=== PATIENT | male | born 1950 | race Caucasian/White ===

== ENCOUNTER 2023-11-12 01:42 | Inpatient (IN) | payer MEDICARE ==
[~2023-11-12] VITALS: Ht 177.8 cm; Wt 100.2 kg
[2023-11-12] VITALS (8 sets, daily range): BP systolic 120–167; BP diastolic 65–143
[2023-11-12 02:05] LABS: BASO # 0.1 10*3/uL (0.0-0.1); BASO % 0.6 % (0.0-1.0); EOS # 0.1 10*3/uL (0.0-0.4); EOS % 0.9 % (1.0-4.0); HEMATOCRIT 50.5 % (42.0-52.0); LYMPH # 2.1 10*3/uL (1.3-4.4); LYMPH % 25.8 % (27.0-41.0); MEAN CELL VOLUME 105.6 fl (80.0-94.0); MEAN CORPUSCULAR HGB 33.5 pg (27.0-31.0); MEAN CORPUSCULAR HGB CONC 31.7 g/dl (33.0-37.0); MEAN PLATELET VOLUME 10.9 fl (9.6-12.3); MONO # 0.8 10*3/uL (0.1-1.0); MONO % 9.7 % (3.0-9.0); NEUT # 5.1 10*3/uL (2.3-7.9); NEUT % 62.8 % (47.0-73.0); PLATELET COUNT AUTOMATED 160 10*3/uL (130-400); RED BLOOD COUNT 4.78 10*6/uL (4.50-5.90); RED CELL DISTRI WIDTH 16.4 % (0-14.5); WHITE BLOOD COUNT 8.2 10*3/uL (4.8-10.8)
[2023-11-12 02:28] LABS: ALKALINE PHOSPHATASE 137 U/L (46-116); BUN 19 mg/dl (9-23); CHLORIDE 111 mmol/L (98-107); POTASSIUM 4.3 mmol/L (3.4-5.1); SGPT/ALT 53 U/L (5-49); TOTAL PROTEIN 7.2 gm/dL (6.0-8.0)
[2023-11-12] MEDS ORDERED: BUMETANIDE 1 MG/4 ML VIAL IV ONE (02:40)
[2023-11-12] MEDS ORDERED: Diltiazem Hydrochloride 25 MG/5 ML VIAL IV ONE ×3 (02:40→10:25)
[2023-11-12] MEDS ORDERED: Magnesium Hydroxide 30 ML UDC PO PRN (05:30)
[2023-11-12] MEDS ORDERED: BISACODYL 10 MG SUPP R PRN (05:30)
[2023-11-12] MEDS ORDERED: ACETAMINOPHEN 325 MG TAB PO PRN (05:30)
[2023-11-12] MEDS ORDERED: BISACODYL 5 MG TAB PO PRN (05:30)
[2023-11-12] MEDS ORDERED: Ondansetron Hydrochloride 4 MG/2 ML VIAL IV PRN (05:30)
[2023-11-12] MEDS ORDERED: ACETAMINOPHEN 650 MG SUPP R PRN (05:30)
[2023-11-12] MEDS ORDERED: FUROSEMIDE 40 MG/4 ML VIAL IV SCH (06:00)
[2023-11-12] MEDS ORDERED: METOPROLOL SUCCINATE XR 50 MG TAB PO SCH (10:00)
[2023-11-12] MEDS ORDERED: Enoxaparin Sodium 100 MG/ML SYR SC SCH (10:00)
[2023-11-12] MEDS ORDERED: LISINOPRIL 5 MG TAB PO SCH (10:00)
[2023-11-12] MEDS ORDERED: DIGOXIN 500 MCG/2 ML AMP IV ONE (10:25)
[2023-11-12] MEDS ORDERED: Technetium Tc 99M Tetrofosmi 0.23 MG KIT IJ SCH (11:45)
[2023-11-12] MEDS ORDERED: PERFLUTREN PROTEIN-A MICROSPHR 3 ML VIAL IV ONE (11:57)
[2023-11-13] VITALS: BP 145/59
[2023-11-13 06:19] LABS: BASO # 0.1 10*3/uL (0.0-0.1); BASO % 0.6 % (0.0-1.0); EOS # 0.1 10*3/uL (0.0-0.4); EOS % 1.2 % (1.0-4.0); HEMATOCRIT 47.3 % (42.0-52.0); LYMPH # 2.3 10*3/uL (1.3-4.4); LYMPH % 28.6 % (27.0-41.0); MEAN CELL VOLUME 103.5 fl (80.0-94.0); MEAN CORPUSCULAR HGB 33.5 pg (27.0-31.0); MEAN CORPUSCULAR HGB CONC 32.3 g/dl (33.0-37.0); MEAN PLATELET VOLUME 11.5 fl (9.6-12.3); MONO # 0.8 10*3/uL (0.1-1.0); MONO % 9.5 % (3.0-9.0); NEUT # 4.8 10*3/uL (2.3-7.9); NEUT % 59.9 % (47.0-73.0); PLATELET COUNT AUTOMATED 147 10*3/uL (130-400); RED BLOOD COUNT 4.57 10*6/uL (4.50-5.90); RED CELL DISTRI WIDTH 16.3 % (0-14.5)
[2023-11-13 06:49] LABS: ALKALINE PHOSPHATASE 123 U/L (46-116); BUN 25 mg/dl (9-23); CHLORIDE 104 mmol/L (98-107); FREE T4 1.05 ng/dl (0.89-1.76); SGPT/ALT 45 U/L (5-49); TOTAL PROTEIN 6.8 gm/dL (6.0-8.0)
[2023-11-13 07:48] LABS: VITAMIN D, 25-HYDROXY 23.4 ng/mL (30-100)
[2023-11-13 08:00] VITALS: BP 129/65
[2023-11-13] MEDS ORDERED: Regadenoson 0.4 MG/5 ML SYR IV ONE (08:42)
[2023-11-13 12:00] VITALS: BP 131/75
[2023-11-13] MEDS ORDERED: XARE20MG PO (16:17)
[2023-11-13] MEDS ORDERED: METOPROLOL SUCC50 M1 PO (16:17)
[2023-11-13] MEDS ORDERED: LISINOPRIL5 MG PO (16:17)
[2023-11-13] MEDS ORDERED: RIVAROXABAN 20 MG TAB PO SCH (18:00)
== END 2023-11-13 16:57 | disposition home or self-care (01) | DRG 291 ==
LOC: ED 01:42 → EDHOLD 05:17 → 4E 05:17
PROVIDERS: Internal Medicine; Student in an Organized Health Care Education/Training Program; ADMIT Internal Medicine; ATTEND Internal Medicine
PROC: 4A02XM4 Measurement of Cardiac Total Activity, External Approach (ICD-10-PCS; principal; 2023-11-13)
PROC: 3E073KZ Introduction of Other Diagnostic Substance into Coronary Artery, Percutaneous Approach (ICD-10-PCS; 2023-11-13)
DX: I11.0 Hypertensive heart disease with heart failure (principal); G93.41 Metabolic encephalopathy; I50.23 Acute on chronic systolic (congestive) heart failure; J96.01 Acute respiratory failure with hypoxia; R65.10 Systemic inflammatory response syndrome (SIRS) of non-infectious origin without acute organ dysfunction; I48.20 Chronic atrial fibrillation, unspecified; I24.89 Other forms of acute ischemic heart disease; R18.8 Other ascites; I43 Cardiomyopathy in diseases classified elsewhere; I48.91 Unspecified atrial fibrillation; E80.6 Other disorders of bilirubin metabolism; R74.01 Elevation of levels of liver transaminase levels; I73.9 Peripheral vascular disease, unspecified; I08.1 Rheumatic disorders of both mitral and tricuspid valves; I27.20 Pulmonary hypertension, unspecified; D75.89 Other specified diseases of blood and blood-forming organs; I25.118 Atherosclerotic heart disease of native coronary artery with other forms of angina pectoris; K74.60 Unspecified cirrhosis of liver; Z91.148 Patient's other noncompliance with medication regimen for other reason; Z95.5 Presence of coronary angioplasty implant and graft; Z82.49 Family history of ischemic heart disease and other diseases of the circulatory system

== ENCOUNTER 2023-12-19 16:56 | Inpatient (IN) | payer MEDICARE ==
[~2023-12-19] VITALS: Ht 177.8 cm; Wt 96.2 kg
[~2023-12-19 16:56] MED LIST: LISINOPRIL5 MG PO; METOPROLOL SUCC50 M1 PO; XARE20MG PO
[2023-12-19] MEDS ORDERED: FUROSEMIDE 40 MG/4 ML VIAL IV ONE (17:05)
[2023-12-19 17:18] LABS: HEMATOCRIT 45.6 % (42.0-52.0); MEAN CORPUSCULAR HGB 33.1 pg (27.0-31.0); MEAN CORPUSCULAR HGB CONC 33.1 g/dl (33.0-37.0); MEAN PLATELET VOLUME 11.7 fl (9.6-12.3); PLATELET COUNT AUTOMATED 122 10*3/uL (130-400); RED BLOOD COUNT 4.56 10*6/uL (4.50-5.90); RED CELL DISTRI WIDTH 16.9 % (0-14.5); WHITE BLOOD COUNT 6.4 10*3/uL (4.8-10.8)
[2023-12-19 17:23] VITALS: BP 153/66
[2023-12-19 17:36] LABS: BUN 16 mg/dl (9-23); CHLORIDE 108 mmol/L (98-107); MANUAL DIFF REFLEX YES; POTASSIUM 3.5 mmol/L (3.4-5.1)
[2023-12-19 17:41] LABS: PLATELET SUFFICIENCY LOW (NORMAL); TOTAL CELLS COUNTED 100 #CELLS
[2023-12-19 19:17] VITALS: BP 140/82
[2023-12-19] MEDS ORDERED: BISACODYL 10 MG SUPP R PRN (20:20)
[2023-12-19] MEDS ORDERED: ACETAMINOPHEN 650 MG SUPP R PRN (20:20)
[2023-12-19] MEDS ORDERED: BISACODYL 5 MG TAB PO PRN (20:20)
[2023-12-19] MEDS ORDERED: Acetaminophen/Hydrocodone 5 MG/325 MG TABLET PO PRN (20:20)
[2023-12-19] MEDS ORDERED: Ondansetron Hydrochloride 4 MG/2 ML VIAL IV PRN (20:20)
[2023-12-19] MEDS ORDERED: MORPHINE Sulfate 2 MG/ML SYR IV PRN (20:20)
[2023-12-19] MEDS ORDERED: Magnesium Hydroxide 30 ML UDC PO PRN (20:20)
[2023-12-19] MEDS ORDERED: TEMAZEPAM 15 MG CAP PO PRN (20:20)
[2023-12-19] MEDS ORDERED: ACETAMINOPHEN 325 MG TAB PO PRN (20:20)
[2023-12-19] MEDS ORDERED: Metoprolol Tartrate 5 MG/5 ML VIAL IV ONE (20:45)
[2023-12-19 21:13] VITALS: BP 130/80
[2023-12-19 21:23] VITALS: BP 112/75
[2023-12-19 22:09] VITALS: BP 127/80
[2023-12-19 23:34] VITALS: BP 148/90
[2023-12-20] VITALS (8 sets, daily range): BP systolic 108–159; BP diastolic 67–97
[2023-12-20] MEDS ORDERED: Metoprolol Tartrate 5 MG/5 ML VIAL IV ONE (02:50)
[2023-12-20 04:51] LABS: ACT PARTIAL THROMBO TIME 32.5 SECONDS (20.0-32.1)
[2023-12-20 05:06] LABS: ALKALINE PHOSPHATASE 139 U/L (46-116); BUN 16 mg/dl (9-23); CHLORIDE 108 mmol/L (98-107); CHOLESTEROL 127 mg/dL (<200); FREE T4 1.14 ng/dl (0.89-1.76); LDL CHOLESTEROL 81 mg/dL (9-159); POTASSIUM 4.2 mmol/L (3.4-5.1); SGPT/ALT 28 U/L (5-49); TOTAL PROTEIN 6.8 gm/dL (6.0-8.0); TRIGLYCERIDES 82 mg/dl (<150)
[2023-12-20 06:21] LABS: BASO % 0.6 % (0.0-1.0); EOS # 0.1 10*3/uL (0.0-0.4); EOS % 1.4 % (1.0-4.0); LYMPH # 1.5 10*3/uL (1.3-4.4); LYMPH % 22.6 % (27.0-41.0); MEAN CELL VOLUME 101.7 fl (80.0-94.0); MEAN CORPUSCULAR HGB 33.8 pg (27.0-31.0); MEAN CORPUSCULAR HGB CONC 33.3 g/dl (33.0-37.0); MONO # 0.6 10*3/uL (0.1-1.0); MONO % 9.1 % (3.0-9.0); NEUT # 4.4 10*3/uL (2.3-7.9); NEUT % 66.1 % (47.0-73.0); PLATELET COUNT AUTOMATED 133 10*3/uL (130-400); RED BLOOD COUNT 4.82 10*6/uL (4.50-5.90); RED CELL DISTRI WIDTH 17.4 % (0-14.5); WHITE BLOOD COUNT 6.6 10*3/uL (4.8-10.8)
[2023-12-20 07:47] LABS: VITAMIN D, 25-HYDROXY 28.1 ng/mL (30-100)
[2023-12-20] MEDS ORDERED: LISINOPRIL 10 MG TAB PO SCH (10:00)
[2023-12-20] MEDS ORDERED: FUROSEMIDE 40 MG/4 ML VIAL IV SCH (10:00)
[2023-12-20] MEDS ORDERED: METOPROLOL SUCCINATE XR 50 MG TAB PO SCH (10:00)
[2023-12-20] MEDS ORDERED: RIVAROXABAN 20 MG TAB PO SCH (18:00)
[2023-12-21] VITALS: BP 129/75
[2023-12-21 05:39] LABS: ALKALINE PHOSPHATASE 141 U/L (46-116); BUN 19 mg/dl (9-23); CHLORIDE 105 mmol/L (98-107); POTASSIUM 3.7 mmol/L (3.4-5.1); SGPT/ALT 26 U/L (5-49); TOTAL PROTEIN 6.4 gm/dL (6.0-8.0)
[2023-12-21 06:07] LABS: BASO % 0.6 % (0.0-1.0); EOS # 0.1 10*3/uL (0.0-0.4); HEMATOCRIT 47.7 % (42.0-52.0); LYMPH # 1.8 10*3/uL (1.3-4.4); LYMPH % 27.3 % (27.0-41.0); MEAN CELL VOLUME 102.8 fl (80.0-94.0); MEAN CORPUSCULAR HGB 32.5 pg (27.0-31.0); MEAN CORPUSCULAR HGB CONC 31.7 g/dl (33.0-37.0); MEAN PLATELET VOLUME 12.4 fl (9.6-12.3); MONO # 0.6 10*3/uL (0.1-1.0); MONO % 8.7 % (3.0-9.0); NEUT % 61.2 % (47.0-73.0); PLATELET COUNT AUTOMATED 120 10*3/uL (130-400); RED BLOOD COUNT 4.64 10*6/uL (4.50-5.90); RED CELL DISTRI WIDTH 17.2 % (0-14.5); WHITE BLOOD COUNT 6.5 10*3/uL (4.8-10.8)
[2023-12-21] MEDS ORDERED: POTASSIUM CHLORIDE 20 MEQ TAB PO ONE (07:25)
[2023-12-21 08:00] VITALS: BP 144/114
[2023-12-21] MEDS ORDERED: EMPAGLIFLOZIN 10 MG TABLET PO SCH (10:00)
[2023-12-21] MEDS ORDERED: LISINOPRIL 10 MG TAB PO SCH (10:00)
[2023-12-21 12:00] VITALS: BP 119/82
[2023-12-21] MEDS ORDERED: Diltiazem Hydrochloride 125 ML IV SCH (12:30)
[2023-12-21] MEDS ORDERED: Diltiazem Hydrochloride 25 MG/5 ML VIAL IV ONE (12:30)
[2023-12-21] MEDS ORDERED: DIGOXIN 125 MCG TAB PO SCH (14:20)
[2023-12-21] MEDS ORDERED: ASPIRIN, CHEWABLE 81 MG TAB PO ONE (14:25)
[2023-12-21] MEDS ORDERED: ATORVASTATIN CALCIUM 40 MG TABLET PO SCH (14:25)
[2023-12-21 16:00] VITALS: BP 141/86
[2023-12-21 20:00] VITALS: BP 150/90
[2023-12-21] MEDS ORDERED: METOPROLOL SUCCINATE XR 50 MG TAB PO SCH (22:00)
[2023-12-22] VITALS: BP 141/97
[2023-12-22 08:00] VITALS: BP 126/82
[2023-12-22 09:53] LABS: BUN 17 mg/dl (9-23); CHLORIDE 107 mmol/L (98-107)
[2023-12-22] MEDS ORDERED: ASPIRIN ENTERIC COATED 81 MG TAB PO SCH (10:00)
[2023-12-22 12:00] VITALS: BP 94/73
[2023-12-22] MEDS ORDERED: DIGOXIN125 MCG PO (13:18)
[2023-12-22] MEDS ORDERED: METOPROLOL SUCC50 M1 PO (13:18)
[2023-12-22] MEDS ORDERED: LACTULOSE20 GM/30 M PO (13:18)
[2023-12-22] MEDS ORDERED: LISINOPRIL10 M1 PO (13:18)
[2023-12-22] MEDS ORDERED: LASIX40 MG PO (13:18)
[2023-12-22] MEDS ORDERED: JARDIANCE10 MG PO (13:18)
[2023-12-22] MEDS ORDERED: ATORVASTATIN CA40 M1 PO (13:18)
[2023-12-22] MEDS ORDERED: ASPIRIN ADULT L81 M2 PO (13:18)
[2023-12-22 16:00] VITALS: BP 150/78
[2023-12-22 20:04] VITALS: BP 161/92
[2023-12-23 00:04] VITALS: BP 147/88
[2023-12-23 06:13] LABS: BUN 23 mg/dl (9-23); CHLORIDE 103 mmol/L (98-107); POTASSIUM 3.7 mmol/L (3.4-5.1)
[2023-12-23 07:41] VITALS: BP 167/83
== END 2023-12-23 07:51 | disposition short-term general hospital (02) | DRG 291 ==
LOC: ED 16:56 → 4E 19:08 → EDHOLD 19:08 → 4E 12-20 12:22
PROVIDERS: Internal Medicine Cardiovascular Disease; Physician Assistant Medical; Student in an Organized Health Care Education/Training Program; ADMIT Internal Medicine; ATTEND Internal Medicine
DX: I11.0 Hypertensive heart disease with heart failure (principal); I50.23 Acute on chronic systolic (congestive) heart failure; R65.10 Systemic inflammatory response syndrome (SIRS) of non-infectious origin without acute organ dysfunction; I24.89 Other forms of acute ischemic heart disease; J81.1 Chronic pulmonary edema; I48.19 Other persistent atrial fibrillation; E44.0 Moderate protein-calorie malnutrition; I47.20 Ventricular tachycardia, unspecified; I10 Essential (primary) hypertension; R73.9 Hyperglycemia, unspecified; E87.8 Other disorders of electrolyte and fluid balance, not elsewhere classified; I48.0 Paroxysmal atrial fibrillation; I25.118 Atherosclerotic heart disease of native coronary artery with other forms of angina pectoris; I42.9 Cardiomyopathy, unspecified; K74.60 Unspecified cirrhosis of liver; I73.9 Peripheral vascular disease, unspecified; D69.6 Thrombocytopenia, unspecified; Z95.5 Presence of coronary angioplasty implant and graft; Z87.891 Personal history of nicotine dependence; Z82.49 Family history of ischemic heart disease and other diseases of the circulatory system; Z68.30 Body mass index [BMI] 30.0-30.9, adult